=== PATIENT | female | born 1955 | race Hispanic/Latino ===

== ENCOUNTER 2018-09-02 07:43 | Emergency (ER) | payer MEDICARE ==
[2018-09-02 07:45] VITALS: BP 206/104; RESP 18; TEMP 97.6
--- NOTE | 2018-09-02 09:54 | ED PDOC ---
HPI: Psych/Substance Abuse Time Seen by Provider: 09/02/18 08:10 Chief Complaint (Nursing): Psychiatric Evaluation Chief Complaint (Provider): they changed my medications History Per: Patient History/Exam Limitations: no limitations Current Symptoms Are (Timing): Still Present Modifying Factor(s): None Severity: Mild Associated Symptoms: Depression. denies: Anger, Anxiety, Agitation, Paranoia, Suicidal Thoughts, Suicidal Plan Additional Complaint(s): 63yo female hx depression recently taken off medication and started on respirdal first dose yesterday, she didnt "feel right" after taking one dose so she took additional dose, gave her slight headache and anxiety. Denies suicidal thoughts, etoh use or sleep disturbance. Also takes paroxetine, ambien for sleep and clonazepam prn. psychiatrist Dr Pascual Past Medical History Reviewed: Historical Data, Nursing Documentation, Vital Signs Vital Signs: Last Vital Signs Temp 97.6 F 09/02/18 07:44 Pulse 100 H 09/02/18 07:44 Resp 18 09/02/18 07:44 BP 206/104 H 09/02/18 07:44 Pulse Ox 98 09/02/18 07:54 - Medical History PMH: Anxiety - Social History Current smoker - smoking cessation education provided: No Alcohol: None - Allergies Allergies/Adverse Reactions: Allergies Allergy/AdvReac Type Severity Reaction Status Date / Time No Known Allergies Allergy Verified 09/02/18 07:54 Review of Systems Constitutional: Negative for: Fever Cardiovascular: Negative for: Chest Pain Gastrointestinal: Negative for: Nausea, Abdominal Pain Genitourinary Female: Negative for: Dysuria Musculoskeletal: Negative for: Neck Pain Skin: Negative for: Rash, Lesions Neurological: Negative for: Weakness, Numbness Psych: Positive for: Anxiety, Depression. Negative for: Suicidal ideation, Withdrawal Physical Exam - Reviewed Nursing Documentation Reviewed: Yes Vital Signs Reviewed: Yes - Physical Exam Appears: Positive for: Well, Non-toxic, No Acute Distress Head Exam: Positive for: ATRAUMATIC, NORMAL INSPECTION, NORMOCEPHALIC Skin: Positive for: Normal Color, Warm, DRY Eye Exam: Positive for: EOMI, Normal appearance, PERRL ENT: Positive for: Normal ENT Inspection Neck: Positive for: Normal, Painless ROM Cardiovascular/Chest: Positive for: Regular Rate, Rhythm Respiratory: Positive for: CNT, Normal Breath Sounds Gastrointestinal/Abdominal: Positive for: Normal Exam, Soft Back: Positive for: Normal Inspection Extremity: Positive for: Normal ROM Neurologic/Psych: Positive for: Alert, Oriented, Mood/Affect (fair insight, cooperative, pleasant mood) - ECG ECG: Positive for: Interpreted By Me ECG Rhythm: Positive for: Sinus Rhythm, Nonspecific Changes Interpretation Of Abn EKG: QTc 483 Rate: 87 O2 Sat by Pulse Oximetry: 98 Pulse Ox Interpretation: Normal Medical Decision Making Medical Decision Making: discuss medications w crisis and they recommended via Dr Palacios for discharge and followup w her private psychiatrist Disposition - Clinical Impression Clinical Impression: Depression - Disposition Referrals: Demian Grady MD [Medical Doctor] - Additional Instructions: Followup with your psychiatrist as directed. Return to ER for any worsening symptoms, thoughts of self-harm or any concern Instructions: Depression Forms: [facility] ([place]ik)
[2018-09-02 09:56] VITALS: PULSE 87
[2018-09-02 11:18] VITALS: O2SAT 100
--- NOTE | 2018-09-02 20:43 | CARD ---
APPROVED REPORT Date of service: 09/02/2018 EKG Measurement Heart [id number] <Conclusion> Normal sinus rhythm Nonspecific T wave abnormality Prolonged QT Abnormal ECG
== END 2018-09-02 11:18 | disposition home or self-care (01) ==
LOC: H.ER 07:43
DX: F32.9 Major depressive disorder, single episode, unspecified (principal); F41.9 Anxiety disorder, unspecified

== ENCOUNTER 2018-10-12 16:30 | Emergency (ER) | payer MEDICARE ==
[2018-10-12 16:40] VITALS: BP 146/82; PULSE 101; RESP 18; TEMP 98.3; O2SAT 99
--- NOTE | 2018-10-12 17:45 | ED PDOC ---
HPI: Psych/Substance Abuse Time Seen by Provider: 10/12/18 17:44 Chief Complaint (Nursing): Psychiatric Evaluation Chief Complaint (Provider): med refill History Per: Patient (63 y/o female h/o Schizophrenia and insomnia requesting change in medication. STates she was recently taken of thioxetene as it was discontinued and written alternative medication. Feels that this medicine does not agree with her and causes her headaches. Attempted to seek attention from her psychiatrist but was unable as he was admitted in hospital.) Past Medical History Reviewed: Historical Data, Nursing Documentation, Vital Signs Vital Signs: Last Vital Signs Temp 98.3 F 10/12/18 16:38 Pulse 101 H 10/12/18 16:38 Resp 18 10/12/18 16:38 BP 146/82 10/12/18 16:38 Pulse Ox 99 10/12/18 16:38 - Family History Family History: States: No Known Family Hx - Home Medications Home Medications: Ambulatory Orders Medication Instructions Recorded Clonazepam [Klonopin] 0.5 mg PO BID 10/12/18 PARoxetine [Paxil] 20 mg PO DAILY 10/12/18 Thiothixene [Navane] 10 mg PO DAILY #7 cap 10/12/18 Zolpidem [Ambien] 10 mg PO HS 10/12/18 chlorproMAZINE [chlorPROMAZINE HCL] 50 mg PO DAILY 10/12/18 - Allergies Allergies/Adverse Reactions: Allergies Allergy/AdvReac Type Severity Reaction Status Date / Time quetiapine [From Seroquel] Allergy RASH Verified 10/12/18 16:38 Review of Systems ROS Statement: Except As Marked, All Systems Reviewed And Found Negative Physical Exam - Reviewed Nursing Documentation Reviewed: Yes Vital Signs Reviewed: Yes - Physical Exam Appears: Positive for: Well, Non-toxic, No Acute Distress Head Exam: Positive for: ATRAUMATIC, NORMAL INSPECTION, NORMOCEPHALIC Skin: Positive for: Normal Color, Warm, DRY Eye Exam: Positive for: EOMI, Normal appearance, PERRL ENT: Positive for: Normal ENT Inspection Neck: Positive for: Normal, Painless ROM Cardiovascular/Chest: Positive for: Regular Rate, Rhythm Respiratory: Positive for: CNT, Normal Breath Sounds Gastrointestinal/Abdominal: Positive for: Normal Exam, Soft Back: Positive for: Normal Inspection Extremity: Positive for: Normal ROM Neurologic/Psych: Positive for: Alert, Oriented - ECG O2 Sat by Pulse Oximetry: 99 - Progress ED Course And Treament: SEEN BY CRISIS D/W DR. GOLDEN. DR. GOLDEN REQUESTS RX FOR NAVANE 10MG DAILY X 7 DAYS TO BE GIVEN TO PATIENT. Disposition - Clinical Impression Clinical Impression: Medication refill - Patient ED Disposition Is Patient to be Admitted: No - Disposition Disposition: Routine/Home Disposition Time: 19:44 Condition: FAIR Prescriptions: Thiothixene [Navane] 10 mg PO DAILY #7 cap Instructions: Schizophrenia, Insomnia (DC)
== END 2018-10-12 19:51 | disposition home or self-care (01) ==
LOC: MERGE 16:30 → H.ER 16:30
DX: Z76.0 Encounter for issue of repeat prescription (principal); F20.9 Schizophrenia, unspecified; G47.00 Insomnia, unspecified; Z79.899 Other long term (current) drug therapy